=== PATIENT | male | born 1980 | race Caucasian/White ===

== ENCOUNTER 2017-06-08 20:42 | Inpatient (IN) | payer OTHER ==
[~2017-06-08] VITALS: Ht 180.3 cm; Wt 97.4 kg
[2017-06-09] MEDS ORDERED: cefTRIAXone 1GM/10ml IVPUSH 10 ML IV ONE (04:45)
[2017-06-09] MEDS ORDERED: MEPERIDINE HCL (50 MG/ML) 1 ML VIAL IV ONE (04:45)
[2017-06-09] MEDS ORDERED: VANCOMYCIN 1GM/250ML 250 ML IV ONE (04:45)
[2017-06-09] MEDS ORDERED: ONDANSETRON HCL 4 MG/2 ML VIAL IV ONE (04:45)
[2017-06-09 06:43] LABS: Basophils # (auto) 0.1 uL; Basophils % (auto) 0.6 % (0.0-2.0); Eosinophils # (auto) 0.2 uL; Eosinophils % (auto) 1.9 % (0.0-7.0); Hematocrit 46.7 % (41.0-53.0); Hemoglobin 16.1 g/dL (13.5-17.5); Lymphocytes # (auto) 2.7 uL; Lymphocytes % (auto) 29.7 % (10.0-50.0); Mean Corpuscular Hgb Conc. 34.4 g/dL (32.0-36.0); Mean Corpuscular Volume 90.1 fL (80.0-100.0); Monocytes # (auto) 0.7 uL; Monocytes % (auto) 7.6 % (0.0-12.0); Neutrophils # (auto) 5.4 uL; Neutrophils % (auto) 60.2 % (37.0-80.0); Nucleated Red Blood Cells % 0.1 %; Platelet Count (auto) 272 10^3/uL (140-450); Red Blood Cells 5.19 10^6/uL (4.5-5.90); Red Cell Distribution Width 12.9 % (11.8-14.3)
[2017-06-09 06:59] LABS: Albumin 3.4 g/dL (3.4-5.0); BUN/Creatinine Ratio 18.4; Bilirubin, Total 0.4 mg/dL (0.2-1.0); Calcium 8.3 mg/dL (8.5-10.1); Potassium 3.7 mmol/L (3.5-5.1); Total Protein 8.1 g/dL (6.4-8.2)
[2017-06-09] MEDS ORDERED: SODIUM CHLORIDE 0.9% 1,000 ML IV ONE (08:01)
[2017-06-09 08:14] LABS: Urine WBC None Seen /hpf (0 - 3)
[2017-06-09 08:34] LABS: Alcohol, Urine < 3.0 mg/dL (0-5); Amphetamine Screen, Urine NEGATIVE (NEGATIVE); Benzodiazephine Screen, Urine POSITIVE (NEGATIVE); Cannabinoid Screen, Urine POSITIVE (NEGATIVE); Cocaine Screen, Urine NEGATIVE (NEGATIVE); Opiate Scree,Urine POSITIVE (NEGATIVE); Phencyclidine Screen, Urine NEGATIVE (NEGATIVE); Urine Amorphous Crystal MOD /hpf (None Seen); Urine Bacteria NONE SEEN /hpf (None Seen); Urine Blood Negative /uL (Negative); Urine Specific Gravity 1.025 (1.001-1.035)
[2017-06-09 08:41] LABS: Barbiturate Scree,Urine NEGATIVE (NEGATIVE)
[2017-06-09] MEDS ORDERED: VANCOMYCIN PER PHARMACY 0 MG IV SCH (11:00)
[2017-06-09] MEDS ORDERED: DEXTROSE (50%) 50ML SYRG IV PRN (11:00)
[2017-06-09] MEDS ORDERED: ASPirin-EC 81 mg tab PO ONE (11:00)
[2017-06-09] MEDS ORDERED: DOCUSATE SOD 100 MG CAP PO PRN (11:15)
[2017-06-09] MEDS ORDERED: TEMAZEPAM 15 MG CAP PO PRN (11:15)
[2017-06-09] MEDS ORDERED: ACETAMINOPHEN 325 MG TAB PO PRN (11:15)
[2017-06-09] MEDS ORDERED: ONDANSETRON HCL 4 MG/2 ML VIAL IV PRN (11:15)
[2017-06-09] MEDS: InsuLIN REG 1unit/0.01ml Soln (100units/ml) SC SCH ×3 (11:30→21:14)
[2017-06-09] MEDS: ACCU-CHEK COMFORT CURVE STRIP VI SCH ×3 (11:48→21:14)
[2017-06-09] MEDS: MORPHINE SULFATE 4 MG/ML SYR/VIAL IV PRN ×3 (11:48→20:21)
[2017-06-09] MEDS: SODIUM CHLORIDE 0.9% 1,000 ML IV SCH (11:58)
[2017-06-09] MEDS ORDERED: PIPERACILLIN-TAZOB 3.375GM 50 ML IV SCH (12:00)
[2017-06-09 12:19] LABS: INR 1.01 (0.9-1.15)
[2017-06-09] MEDS ORDERED: diphenhdrAMINE HCL 50 MG/1 ML VL ONE (12:20)
[2017-06-09] MEDS ORDERED: METHADONE HCL 10 MG TAB PO ONE (12:45)
[2017-06-09] MEDS ORDERED: diphenhdrAMINE HCL 50 MG/1 ML VL IV ONE (12:45)
[2017-06-09] MEDS: VANCOMYCIN 1,250 MG in D5W 5% 250 ML IV SCH ×2 (13:31→21:01)
[2017-06-09] MEDS: CLINDAMYCIN 600MG IV 50 ML IV SCH ×2 (14:00→23:15)
[2017-06-09] MEDS ORDERED: CLINDAMYCIN 300MG IV 50 ML IV SCH (14:00)
[2017-06-09 14:17] VITALS: BP 138/70
[2017-06-09] MEDS ORDERED: INFLUENZA QUAD 2017-2018 0.5 ML SYRG IM ONE (16:00)
[2017-06-09 16:30] VITALS: BP 106/54
[2017-06-09] MEDS: HYDROcodone-ACET 5/325MG TAB PO PRN (17:04)
[2017-06-09] MEDS: FAMOTIDINE 20 MG TAB PO SCH (21:13)
[2017-06-09] MEDS: ASCORBIC ACID 500 MG TAB PO SCH (21:13)
[2017-06-09 22:02] VITALS: BP 122/68
[2017-06-10] MEDS: MORPHINE SULFATE 4 MG/ML SYR/VIAL IV PRN ×4 (00:31→20:22)
[2017-06-10] MEDS: SODIUM CHLORIDE 0.9% 1,000 ML IV SCH ×2 (04:20→16:59)
[2017-06-10 04:44] VITALS: BP 117/56
[2017-06-10] MEDS: VANCOMYCIN 1,250 MG in D5W 5% 250 ML IV SCH ×3 (04:59→21:00)
[2017-06-10] MEDS: CLINDAMYCIN 600MG IV 50 ML IV SCH ×3 (06:23→22:16)
[2017-06-10] MEDS: ACCU-CHEK COMFORT CURVE STRIP VI SCH ×4 (06:34→20:32)
[2017-06-10] MEDS: InsuLIN REG 1unit/0.01ml Soln (100units/ml) SC SCH ×4 (06:34→20:32)
[2017-06-10 06:53] LABS: Basophils # (auto) 0 uL; Basophils % (auto) 0.5 % (0.0-2.0); Eosinophils # (auto) 0.3 uL; Eosinophils % (auto) 3.5 % (0.0-7.0); Hematocrit 44.2 % (41.0-53.0); Hemoglobin 15.2 g/dL (13.5-17.5); Lymphocytes # (auto) 3.6 uL; Lymphocytes % (auto) 46.9 % (10.0-50.0); Mean Corpuscular Hemoglobin 31.1 pg (28.0-32.0); Mean Corpuscular Hgb Conc. 34.5 g/dL (32.0-36.0); Mean Corpuscular Volume 90.3 fL (80.0-100.0); Monocytes # (auto) 0.7 uL; Monocytes % (auto) 8.6 % (0.0-12.0); Neutrophils # (auto) 3.2 uL; Neutrophils % (auto) 40.5 % (37.0-80.0); Nucleated Red Blood Cells % 0.2 %; Platelet Count (auto) 247 10^3/uL (140-450); Red Blood Cells 4.89 10^6/uL (4.5-5.90); Red Cell Distribution Width 12.8 % (11.8-14.3); White Blood Cell 7.8 10^3/uL (4.4-10.8)
[2017-06-10 07:14] LABS: Albumin 2.8 g/dL (3.4-5.0); BUN/Creatinine Ratio 17.9; Bilirubin, Total 0.4 mg/dL (0.2-1.0); Calcium 8.1 mg/dL (8.5-10.1); Total Protein 6.7 g/dL (6.4-8.2)
[2017-06-10 09:00] VITALS: BP 119/77
[2017-06-10] MEDS: FAMOTIDINE 20 MG TAB PO SCH ×2 (09:17→20:26)
[2017-06-10] MEDS: MULTIPLE VITAMIN TAB PO SCH (09:18)
[2017-06-10] MEDS: METHADONE HCL 10 MG TAB PO SCH (09:18)
[2017-06-10] MEDS: ZINC SULFATE 220 MG CAP PO SCH (09:19)
[2017-06-10] MEDS: ASPirin-EC 81 mg tab PO SCH (09:19)
[2017-06-10] MEDS: cefTRIAXone 1GM/10ml IVPUSH 10 ML IV SCH (09:20)
[2017-06-10] MEDS: ASCORBIC ACID 500 MG TAB PO SCH ×2 (09:20→20:25)
[2017-06-10 13:00] VITALS: BP 112/71
[2017-06-10 17:00] VITALS: BP 107/62
[2017-06-10 21:43] VITALS: BP 103/58
[2017-06-11] MEDS: MORPHINE SULFATE 4 MG/ML SYR/VIAL IV PRN ×5 (00:17→21:09)
[2017-06-11] MEDS: VANCOMYCIN 1,250 MG in D5W 5% 250 ML IV SCH ×3 (04:35→21:10)
[2017-06-11 04:58] VITALS: BP 129/83
[2017-06-11] MEDS: InsuLIN REG 1unit/0.01ml Soln (100units/ml) SC SCH ×4 (06:07→21:43)
[2017-06-11] MEDS: CLINDAMYCIN 600MG IV 50 ML IV SCH ×3 (06:07→21:10)
[2017-06-11] MEDS: ACCU-CHEK COMFORT CURVE STRIP VI SCH ×4 (06:10→21:43)
[2017-06-11] MEDS: HYDROcodone-ACET 5/325MG TAB PO PRN ×4 (07:41→21:43)
[2017-06-11 08:33] VITALS: BP 132/78
[2017-06-11] MEDS: ASCORBIC ACID 500 MG TAB PO SCH ×2 (10:00→21:10)
[2017-06-11] MEDS: cefTRIAXone 1GM/10ml IVPUSH 10 ML IV SCH (10:00)
[2017-06-11] MEDS: METHADONE HCL 10 MG TAB PO SCH (10:00)
[2017-06-11] MEDS: SODIUM CHLORIDE 0.9% 1,000 ML IV SCH (13:03)
[2017-06-11] MEDS: ASPirin-EC 81 mg tab PO SCH (14:13)
[2017-06-11] MEDS: MULTIPLE VITAMIN TAB PO SCH (14:13)
[2017-06-11] MEDS: FAMOTIDINE 20 MG TAB PO SCH ×2 (14:13→21:09)
[2017-06-11] MEDS: ZINC SULFATE 220 MG CAP PO SCH (14:13)
[2017-06-11 22:10] VITALS: BP 128/61
[2017-06-12] MEDS: MORPHINE SULFATE 4 MG/ML SYR/VIAL IV PRN ×2 (04:01→08:09)
[2017-06-12] MEDS: VANCOMYCIN 1,250 MG in D5W 5% 250 ML IV SCH ×2 (04:02→13:17)
[2017-06-12] MEDS: InsuLIN REG 1unit/0.01ml Soln (100units/ml) SC SCH ×2 (05:22→11:30)
[2017-06-12] MEDS: ACCU-CHEK COMFORT CURVE STRIP VI SCH ×2 (05:23→11:30)
[2017-06-12] MEDS: CLINDAMYCIN 600MG IV 50 ML IV SCH ×2 (05:30→13:17)
[2017-06-12 05:40] VITALS: BP_SYST 119; BP_SYST 83; BP_DIAS 56; BP_DIAS 74
[2017-06-12] MEDS: SODIUM CHLORIDE 0.9% 1,000 ML IV SCH (06:23)
[2017-06-12] MEDS ORDERED: PRO-STAT 64 30ML PO SCH (08:00)
[2017-06-12 09:00] VITALS: BP 118/62
[2017-06-12] MEDS: cefTRIAXone 1GM/10ml IVPUSH 10 ML IV SCH (09:58)
[2017-06-12] MEDS: ASPirin-EC 81 mg tab PO SCH (09:59)
[2017-06-12] MEDS: ZINC SULFATE 220 MG CAP PO SCH (09:59)
[2017-06-12] MEDS: MULTIPLE VITAMIN TAB PO SCH (09:59)
[2017-06-12] MEDS: FAMOTIDINE 20 MG TAB PO SCH (09:59)
[2017-06-12] MEDS: ASCORBIC ACID 500 MG TAB PO SCH (09:59)
[2017-06-12] MEDS: METHADONE HCL 10 MG TAB PO SCH (09:59)
[2017-06-12 11:26] VITALS: BP 118/62
[2017-06-12 12:23] VITALS: BP 109/67
== END 2017-06-12 14:14 | disposition home or self-care (01) | DRG 871 ==
LOC: ER 20:42 → OVERFLOW 20:43 → ER 06-09 01:35 → EAST 06-09 14:01
PROVIDERS: ADMIT Internal Medicine; ATTEND Family Medicine
DX: A41.9 Sepsis, unspecified organism (principal); M72.6 Necrotizing fasciitis; I96 Gangrene, not elsewhere classified; F11.20 Opioid dependence, uncomplicated; L02.415 Cutaneous abscess of right lower limb; L03.115 Cellulitis of right lower limb; L03.114 Cellulitis of left upper limb; L97.218 Non-pressure chronic ulcer of right calf with other specified severity; E83.51 Hypocalcemia; R73.9 Hyperglycemia, unspecified; F17.210 Nicotine dependence, cigarettes, uncomplicated; F32.9 Major depressive disorder, single episode, unspecified; F41.9 Anxiety disorder, unspecified; I10 Essential (primary) hypertension; Z91.14 Patient's other noncompliance with medication regimen; Z88.1 Allergy status to other antibiotic agents; Z79.82 Long term (current) use of aspirin; Z79.899 Other long term (current) drug therapy
CPT/HCPCS: 36415; 71046; 73700; 80053; 80202; 80307; 81001; 82962; 83036; 83605; 83735; 85025; 85610; 87040; 87077; 87186; 87205; 93306; 96361; 96365; 96375; J2405; J2543; J3490; J7060

== ENCOUNTER 2024-07-15 11:19 | Emergency (ER) | payer MEDICAID ==
[~2024-07-15] VITALS: Ht 180.3 cm; Wt 112.1 kg
[2024-07-15 11:26] VITALS: BP 140/77; RESP 20; TEMP 98.5; O2SAT 92
[2024-07-15 11:34] VITALS: PULSE 83
--- NOTE | 2024-07-15 11:34 | ED.PDOC ---
History of Present Illness HPI Comments 44-year-old male with PMHx HTN presents with a chief complaint of bilateral lower leg swelling x "a couple days". Patient has swelling and redness to his right leg and left leg. Patient endorses that he has had something like this before in the past, and was evaluated for a blood clot. Patient denies any SOB, nausea, vomiting, or diarrhea. Patient endorses Fentanyl use, Methamphetamine use, Marijuana use, Heroin use, and Cigarette use. Patient mentions that he just recently got out of [facility]. No other symptoms or modifying factors present at this time. Chief Complaint: Extremity Swelling Time Seen by MD: 11:26 Reviewed Notes: Nurses Notes, Medications, Allergies Allergies: Coded Allergies: Piperacillin (Verified Allergy, Unknown, 06/09/17) Tazobactam (Verified Allergy, Unknown, 06/09/17) Home Meds No Active Prescriptions or Reported Meds Information Source: Patient Mode of Arrival: Ambulatory Severity: Moderate Timing: Days Duration: Since onset Prehospital treatment: None Past Medical History PAST MEDICAL HISTORY: HTN Surgical History: Denies all surgeries Surgical History (Other): JAW SURGERY Family History Family History: Reviewed,noncontributory to illness Social History Smoker: Cigarettes Alcohol: Denies ETOH Use Drugs: Heroin, Marijuana, Methamphetamine, Other (Fentanyl ) Lives In: Home Constitutional: denies: chills, diaphoresis, fatigue, fever, malaise, sweats, weakness, others EENTM: denies: blurred vision, double vision, ear bleeding, ear discharge, ear drainage, ear pain, ear ringing, eye pain, eye redness, hearing loss, mouth pain, mouth swelling, nasal discharge, nose bleeding, nose congestion, nose pain, photophobia, tearing, throat pain, throat swelling, voice changes, others Respiratory: denies: cough, hemoptysis, orthopnea, SOB at rest, shortness of breath, SOB with excertion, stridor, wheezing, others Cardiovascular: reports: edema (BILATERAL LOWER LEGS); denies: chest pain, dizzy spells, diaphoresis, Dyspnea on exertion, irregular heart beat, left arm pain, lightheadedness, palpitations, PND, syncope, others Gastrointestinal: denies: abdomen distended, abdominal pain, blood streaked bowels, constipated, diarrhea, dysphagia, difficulty swallowing, hematemesis, melena, nausea, poor appetite, poor fluid intake, rectal bleeding, rectal pain, vomiting, others Genitourinary: denies: burning, dysuria, flank pain, frequency, hematuria, incontinence, penile discharge, penile sore, pain, testicle pain, testicle swelling, urgency, others Neurological: denies: dizziness, fainting, headache, left sided numbness, left sided weakness, numbness, paresthesia, pre-existing deficit, right sided numbness, right sided weakness, seizure, speech problems, tingling, tremors, weakness, others Musculoskeletal: denies: back pain, gout, joint pain, joint swelling, muscle pain, muscle stiffness, neck pain, others Integumetry: denies: bruises, change in color, change in hair/nails, dryness, laceration, lesions, lumps, rash, wounds, others Allergic/Immunocompromised: denies: Difficulty Healing, Frequent Infections, Hives, Itching, others Hematologic/Lymphatic: denies: anemia, blood clots, easy bleeding, easy bruising, swollen glands, others Endocrine: denies: excessive hunger, excessive sweating, excessive thirst, excessive urination, flushing, intolerance to cold, intolerance to heat, unexplained weight gain, unexplained weight loss, others Psychiatric: denies: anxiety, bipolar disorder, depression, hopeless, panic disorder, schizophrenia, sleepless, suicidal, others All Other Systems: Reviewed and Negative Physical Exam General Appearance: Moderate Distress HEENT: Normal ENT Inspection, Pharynx Normal, TMs Normal Neck: Full Range of Motion, Non-Tender, Normal, Normal Inspection Respiratory: Chest Non-Tender, Lungs Clear, No Accessory Muscle Use, No Respiratory Distress, Normal Breath Sounds Cardiovascular: No Edema, No JVD, No Murmur, No Gallop, Normal Peripheral Pulses, Regular Rate/Rhythm Breast Exam: Deferred Gastrointestinal: No Organomegaly, Non Tender, No Pulsatile Mass, Normal Bowel Sounds, Soft Genitalia: Deferred Pelvic: Deferred Rectal: Deferred Extremities: No calf tenderness, Normal capillary refill, Pedal edema Musculoskeletal : Apperance: Normal Neurologic: Alert, 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 Was a procedure done?: No EKG EKG : Pulse Rate (adult): 83 [place]: Normal Cardiac Rhythm: NSR Block: None Hypertrophy: None ST: Normal Differential Dx Considerations may include: Acute on chronic diastolic heart failure, pedal edema, CHF, substance abuse X-Ray, Labs, Meds, VS Vital Signs Date Time Temp Pulse Resp B/P (MAP) Pulse Ox O2 Delivery O2 Flow Rate FiO2 07/15/24 11:34 83 07/15/24 11:30 83 07/15/24 11:26 98.5 96 20 140/77 (98) 92 98.5 07/15/24 11:26 96 Lab Test 07/15/24 11:54 Range/Units White Blood Count 8.8 4.4-10.8 10^3/uL Red Blood Count 5.65 4.5-5.90 10^6/uL Hemoglobin 17.8 H 13.5-17.5 g/dL Hematocrit 52.2 41.0-53.0 % Mean Corpuscular Volume 92.5 80.0-100.0 fL Mean Corpuscular Hemoglobin 31.5 28.0-32.0 pg Mean Corpuscular Hemoglobin Concent 34.0 32.0-36.0 g/dL Red Cell Distribution Width 13.0 11.8-14.3 % Platelet Count 188 140-450 10^3/uL Mean Platelet Volume 8.0 6.9-10.8 fL Neutrophils (%) (Auto) 54.3 37.0-80.0 % Lymphocytes (%) (Auto) 36.8 10.0-50.0 % Monocytes (%) (Auto) 6.4 0.0-12.0 % Eosinophils (%) (Auto) 1.8 0.0-7.0 % Basophils (%) (Auto) 0.7 0.0-2.0 % Neutrophils # (Auto) 4.8 1.6-8.6 10 ^3/uL Lymphocytes # (Auto) 3.2 0.4-5.4 10 ^3/uL Monocytes # (Auto) 0.6 0-1.3 10 ^3/uL Eosinophils # (Auto) 0.2 0-0.8 10 ^3/uL Basophils # (Auto) 0.1 0-0.2 10 ^3/uL Nucleated Red Blood Cells 0.3 % Sodium Level 144 136-145 mmol/L Potassium Level 3.8 3.5-5.1 mmol/L Chloride Level 108 H 98-107 mmol/L Carbon Dioxide Level 27 20-31 mmol/L Anion Gap 9 5-15 Blood Urea Nitrogen 16 9-23 mg/dL Creatinine 0.92 0.700-1.30 mg/dL Glomerular Filtration Rate Calc 107 >90 mL/min BUN/Creatinine Ratio 17.4 10.0-20.0 Serum Glucose 95 74-106 mg/dL Calcium Level 9.5 8.7-10.4 mg/dL Troponin I High Sensitivity 3 L </=54 ng/L B-Type Natriuretic Peptide 2.46 0-100 pg/mL Bilateral Lower Leg Ultrasound Impression: No right or left lower extremity deep venous thrombosis. The patient's CBC and chemistry panel are within normal limits The troponin level is negative We discussed the case with the patient and at this time the patient was told that he may need to be admitted The patient was now eloped from the department's. Images Reviewed?: Images reviewed and evaluated by me Time of 1ST Reevaluation: 11:56 Reevaluation 1ST: Unchanged Patient Education/Counseling: Diagnosis, Treatment, Prognosis Family Education/Counseling: No Family Present Departure 1 Departure Time of Disposition: 13:21 Impression: Primary Impression: Pedal edema Additional Impressions: Generalized weakness Substance abuse Disposition: 07 LEFT AWOL/ELOPED Condition: Fair e-Prescriptions No Active Prescriptions or Reported Meds Critical Care Note Critical Care Time?: No Stability Stability form required: Yes Unstable for transfer: ED Physician Assesment (Clinical assesment) Heart Score Heart Score: Heart Score Response (Comments) Value History N/A 0 EKG N/A 0 Age N/A 0 Risk Factors N/A 0 Troponin N/A 0 Total 0 I personally scribed for PAT MORA MD ([email or web address]) on 07/15/24 at 11:34. Electronically submitted by Te Bennett ([email or web address]). I personally scribed for PAT MORA MD ([email or web address]) on 07/15/24 at 12:41. Electronically submitted by Te Bennett ([email or web address]). PAT MORA MD Jul 15, 2024 11:34
[2024-07-15 12:02] LABS: Basophils # (auto) 0.1 10 ^3/uL (0-0.2); Basophils % (auto) 0.7 % (0.0-2.0); Eosinophils # (auto) 0.2 10 ^3/uL (0-0.8); Eosinophils % (auto) 1.8 % (0.0-7.0); Hematocrit 52.2 % (41.0-53.0); Hemoglobin 17.8 g/dL (13.5-17.5); Lymphocytes # (auto) 3.2 10 ^3/uL (0.4-5.4); Lymphocytes % (auto) 36.8 % (10.0-50.0); Mean Corpuscular Hemoglobin 31.5 pg (28.0-32.0); Mean Corpuscular Volume 92.5 fL (80.0-100.0); Monocytes # (auto) 0.6 10 ^3/uL (0-1.3); Monocytes % (auto) 6.4 % (0.0-12.0); Neutrophils # (auto) 4.8 10 ^3/uL (1.6-8.6); Neutrophils % (auto) 54.3 % (37.0-80.0); Nucleated Red Blood Cells % 0.3 %; Platelet Count (auto) 188 10^3/uL (140-450); Red Blood Cells 5.65 10^6/uL (4.5-5.90); White Blood Cell 8.8 10^3/uL (4.4-10.8)
--- NOTE | 2024-07-15 12:03 | DVH ---
CHEST RADIOGRAPH Indication: sob Technique: Frontal and lateral view of the chest was obtained Comparison: None FINDINGS: Lines and Tubes: None Lungs: Clear Pleura: No effusion. No pneumothorax. Cardiomediastinal contours: Unremarkable Bones: Unremarkable IMPRESSION: No evidence of acute disease.
[2024-07-15 12:08] LABS: Potassium 3.8 mmol/L (3.5-5.1); Sodium 144 mmol/L (136-145)
[2024-07-15 12:09] LABS: Anion Gap 9 (5-15); Carbon Dioxide 27 mmol/L (20-31)
[2024-07-15 12:10] LABS: Calcium 9.5 mg/dL (8.7-10.4)
[2024-07-15 12:12] LABS: Chloride 108 mmol/L (98-107)
[2024-07-15 12:14] LABS: BUN/Creatinine Ratio 17.4 (10.0-20.0); Blood Urea Nitrogen 16 mg/dL (9-23); Glucose 95 mg/dL (74-106)
--- NOTE | 2024-07-15 12:32 | DVH ---
US BiLat Lower DVT HISTORY: leg swelling COMPARISON: None TECHNIQUE: Duplex Doppler evaluation of the deep venous system of the lower extremity from the common femoral veins, superficial femoral vein, great saphenous vein, deep femoral vein, popliteal vein, an d calf veins, including color Doppler and spectral/pulsed waveform analysis, was performed. FINDINGS: Right: - Common femoral vein: Compressible - Deep femoral vein: Compressible - Femoral vein: Compressible - Popliteal vein: Compressible - Posterior tibial vein: Waveforms present - Other: Nothing Left: - Common femoral vein: Compressible - Deep femoral vein: Compressible - Femoral vein: Compressible - Popliteal vein: Compressible - Posterior tibial vein: Waveforms present - Other: Nothing IMPRESSION: No right or left lower extremity deep venous thrombosis.
--- NOTE | 2024-07-15 18:48 | ECG ---
[facility] Test Date: 2024-07-15 Test Time: 11:30:56 Pat Name: HELENA SCHWAB Department: ER Room: Gender: M Colleter: OSITO : 1980 Requested By: PAT MORA Order Number: [id number] Reading MD: Herb Villafuerte Measurements Intervals Blanch Rate: 83 P: 10 MS: 149 QRS: 33 QRSD: 107 T: 11 QT: 386 QTc: 454 Interpretive Statements Sinus rhythm Anteroseptal infarct, old Electronically Signed On 07-16-2024 14:10:38 PDT by Hreb Villafuerte Please click the below link to view image of tracing.
== END 2024-07-15 12:48 | disposition left against medical advice (07) ==
LOC: ER 11:29
DX: R60.9 Edema, unspecified (principal); R53.1 Weakness; F19.10 Other psychoactive substance abuse, uncomplicated; I10 Essential (primary) hypertension; F17.210 Nicotine dependence, cigarettes, uncomplicated; F12.90 Cannabis use, unspecified, uncomplicated; Z98.890 Other specified postprocedural states; Z88.0 Allergy status to penicillin; Z88.1 Allergy status to other antibiotic agents; Z79.899 Other long term (current) drug therapy
CPT/HCPCS: 36415; 71046; 80048; 83880; 84484; 85025; 93005; 93970

== ENCOUNTER 2024-07-15 13:14 | Emergency (ER) | payer MEDICAID, OTHER ==
--- NOTE | 2024-07-15 14:05 | ED.PDOC ---
History of Present Illness HPI Comments 44-year-old male with PMHx HTN presents with a chief complaint of bilateral lower leg swelling x "a couple days". Patient has swelling and redness to his right leg and left leg. Patient endorses that he has had something like this before in the past, and was evaluated for a blood clot. Patient denies any SOB, nausea, vomiting, or diarrhea. Patient endorses Fentanyl use, Methamphetamine use, Marijuana use, Heroin use, and Cigarette use. Patient mentions that he just recently got out of [facility]. No other symptoms or modifying factors present at this time. Time Seen by MD: 14:00 Reviewed Notes: Medications, Allergies Allergies: Coded Allergies: Piperacillin (Verified Allergy, Unknown, 06/09/17) Tazobactam (Verified Allergy, Unknown, 06/09/17) Home Meds No Active Prescriptions or Reported Meds Information Source: Patient Mode of Arrival: Ambulatory Severity: Moderate Timing: Days Duration: Since onset Prehospital treatment: None Past Medical History PAST MEDICAL HISTORY: HTN Surgical History: Denies all surgeries Family History Family History: Reviewed,noncontributory to illness Social History Smoker: Cigarettes Alcohol: Denies ETOH Use Drugs: Heroin, Marijuana, Methamphetamine, Other Lives In: Home Constitutional: denies: chills, diaphoresis, fatigue, fever, malaise, sweats, weakness, others EENTM: denies: blurred vision, double vision, ear bleeding, ear discharge, ear drainage, ear pain, ear ringing, eye pain, eye redness, hearing loss, mouth pain, mouth swelling, nasal discharge, nose bleeding, nose congestion, nose pain, photophobia, tearing, throat pain, throat swelling, voice changes, others Respiratory: denies: cough, hemoptysis, orthopnea, SOB at rest, shortness of breath, SOB with excertion, stridor, wheezing, others Cardiovascular: reports: edema; denies: chest pain, dizzy spells, diaphoresis, Dyspnea on exertion, irregular heart beat, left arm pain, lightheadedness, palpitations, PND, syncope, others Gastrointestinal: denies: abdomen distended, abdominal pain, blood streaked bowels, constipated, diarrhea, dysphagia, difficulty swallowing, hematemesis, melena, nausea, poor appetite, poor fluid intake, rectal bleeding, rectal pain, vomiting, others Genitourinary: denies: burning, dysuria, flank pain, frequency, hematuria, incontinence, penile discharge, penile sore, pain, testicle pain, testicle swelling, urgency, others Neurological: denies: dizziness, fainting, headache, left sided numbness, left sided weakness, numbness, paresthesia, pre-existing deficit, right sided numbness, right sided weakness, seizure, speech problems, tingling, tremors, weakness, others Musculoskeletal: denies: back pain, gout, joint pain, joint swelling, muscle pain, muscle stiffness, neck pain, others Integumetry: denies: bruises, change in color, change in hair/nails, dryness, laceration, lesions, lumps, rash, wounds, others Allergic/Immunocompromised: denies: Difficulty Healing, Frequent Infections, Hives, Itching, others Hematologic/Lymphatic: denies: anemia, blood clots, easy bleeding, easy bruising, swollen glands, others Endocrine: denies: excessive hunger, excessive sweating, excessive thirst, excessive urination, flushing, intolerance to cold, intolerance to heat, unexplained weight gain, unexplained weight loss, others Psychiatric: denies: anxiety, bipolar disorder, depression, hopeless, panic disorder, schizophrenia, sleepless, suicidal, others All Other Systems: Reviewed and Negative Physical Exam General Appearance: No Apparent Distress HEENT: Normal ENT Inspection, Pharynx Normal, TMs Normal Neck: Full Range of Motion, Non-Tender, Normal, Normal Inspection Respiratory: Chest Non-Tender, Lungs Clear, No Accessory Muscle Use, No Respiratory Distress, Normal Breath Sounds Cardiovascular: No Edema, No JVD, No Murmur, No Gallop, Normal Peripheral Pulses, Regular Rate/Rhythm Breast Exam: Deferred Gastrointestinal: No Organomegaly, Non Tender, No Pulsatile Mass, Normal Bowel Sounds, Soft Genitalia: Deferred Pelvic: Deferred Rectal: Deferred Extremities: No calf tenderness, Normal capillary refill, Pedal edema Musculoskeletal : Apperance: Normal Neurologic: Alert, 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 Was a procedure done?: No Differential Dx Considerations may include: Generalized weakness, electrolyte imbalance, dehydration, substance use X-Ray, Labs, Meds, VS Chest X-Ray Impression: No evidence of acute disease. Bilateral DVT US Impression: No right or left lower extremity deep venous thrombosis. The patient's CBC and chemistry panel are within normal limits The patient was being discharged at this time The patient initially was seen here and then eloped from the department's The patient was now returned. The patient has positive benzodiazepines as well as marijuana and opiates Images Reviewed?: Images reviewed and evaluated by me Time of 1ST Reevaluation: 14:30 Reevaluation 1ST: Unchanged Time of 2ND Reevaluation: 14:45 Reevaluation 2ND: Improved Patient Education/Counseling: Diagnosis, Treatment, Prognosis, Need For Follow Up Family Education/Counseling: No Family Present Departure 1 Departure Time of Disposition: 14:45 Impression: Primary Impression: Generalized weakness Additional Impressions: Pedal edema Fentanyl use disorder, severe Disposition: 01 HOME / SELF CARE / HOMELESS Condition: Fair e-Prescriptions No Active Prescriptions or Reported Meds Discharged With: Self Critical Care Note Critical Care Time?: No Stability Stability form required: No Heart Score Heart Score: Heart Score Response (Comments) Value History N/A 0 EKG N/A 0 Age N/A 0 Risk Factors N/A 0 Troponin N/A 0 Total 0 I personally scribed for PAT MORA MD ([email or web address]) on 07/15/24 at 14:05. Electronically submitted by Te Bennett ([email or web address]). I personally scribed for PAT MORA MD ([email or web address]) on 07/15/24 at 14:07. Electronically submitted by Te Bennett ([email or web address]). I personally scribed for PAT MORA MD ([email or web address]) on 07/15/24 at 14:08. Electronically submitted by Te Bennett ([email or web address]). PAT MORA MD Jul 15, 2024 14:05
[2024-07-15 16:03] VITALS: BP 155/98; PULSE 79; RESP 18; TEMP 98.9; O2SAT 96
== END 2024-07-15 16:13 | disposition home or self-care (01) ==
LOC: ER 13:28
DX: R53.1 Weakness (principal); R60.9 Edema, unspecified; F11.20 Opioid dependence, uncomplicated; I10 Essential (primary) hypertension; F17.210 Nicotine dependence, cigarettes, uncomplicated; F12.90 Cannabis use, unspecified, uncomplicated; Z88.0 Allergy status to penicillin; Z88.1 Allergy status to other antibiotic agents